=== PATIENT | male | born 1960 | race Asian ===

== ENCOUNTER → 2017-01-28 | Outpatient (CLI) | payer OTHER ==
[2017-01-28 12:49] LABS: HEMOGLOBIN 14.8 g/dL (13.7-18.0)
[2017-01-28 13:02] LABS: BLOOD UREA NITROGEN 22 mg/dL (7-18)
[2017-01-28 13:15] LABS: ASPARTATE AMINO TRANSFERASE 15 U/L (15-37); PROSTATE SPECIFIC ANTIGEN 1.18 ng/mL (0.00-4.00)
== END | disposition home or self-care (01) ==
LOC: LAB 11:35
PROVIDERS: ATTEND Family Medicine
DX: Z13.220 Encounter for screening for lipoid disorders (principal); Z13.228 Encounter for screening for other metabolic disorders; E11.9 Type 2 diabetes mellitus without complications; M10.9 Gout, unspecified
CPT/HCPCS: 36415; 80053; 80061; 81003; 83036; 84153; 84443; 84550; 85025

== ENCOUNTER → 2017-04-22 | Outpatient (CLI) | payer OTHER | END | disposition home or self-care (01) | LOC: CFH 08:03 | PROVIDERS: ATTEND Internal Medicine | DX: B18.1 Chronic viral hepatitis B without delta-agent (principal); K76.0 Fatty (change of) liver, not elsewhere classified; K82.4 Cholesterolosis of gallbladder | CPT/HCPCS: 76700 ==

== ENCOUNTER → 2017-05-06 | Outpatient (CLI) | payer OTHER | END | disposition home or self-care (01) | LOC: LAB 11:20 | PROVIDERS: ATTEND Internal Medicine | DX: B18.1 Chronic viral hepatitis B without delta-agent (principal) | CPT/HCPCS: 36415; 82105; 87517 ==

== ENCOUNTER → 2017-12-02 | Outpatient (CLI) | payer OTHER | END | disposition home or self-care (01) | LOC: CFH 06:54 | PROVIDERS: ATTEND Internal Medicine | DX: B18.1 Chronic viral hepatitis B without delta-agent (principal) | CPT/HCPCS: 76700 ==

== ENCOUNTER 2018-02-01 18:46 | Emergency (ER) | payer OTHER ==
[~2018-02-01] VITALS: Ht 172.7 cm; Wt 90.0 kg
[2018-02-01] MEDS ORDERED: INDO50CA PO (19:16)
[2018-02-01] MEDS ORDERED: ALLO100T30 PO (19:17)
[2018-02-01] MEDS ORDERED: LOSA50TA6 PO (19:18)
[2018-02-01] MEDS ORDERED: HYDR12.53 PO (19:18)
[2018-02-01] MEDS ORDERED: COLC0.6T37 PO (19:19)
[2018-02-01] MEDS ORDERED: KETOROLAC 30 MG/1 ML IM ONE (19:30)
[2018-02-01 19:47] LABS: BASOPHILS # (AUTO) 0.03 x10^3/uL (0-0.1); BASOPHILS % (AUTO) 0 % (0-1); EOSINOPHILS # (AUTO) 0.03 x10^3/uL (0-0.4); EOSINOPHILS % (AUTO) 1 % (1-7); LYMPHOCYTES # (AUTO) 1.86 x10^3/uL (1-3.4); LYMPHOCYTES % (AUTO) 24 % (22-44); MD NO; MEAN CORPUSCULAR HEMOGLOBIN 31.9 pg (27.5-34.5); MEAN CORPUSCULAR HGB CONC 34.4 g/dL (33.2-36.2); MEAN CORPUSCULAR VOLUME 92.7 fL (81-97); MEAN PLATELET VOLUME 8.7 fL (7.4-10.4); MONOCYTES # (AUTO) 0.79 x10^3/uL (0.2-0.8); MONOCYTES % (AUTO) 10 % (2-9); NEUTROPHILS % (AUTO) 64 % (42-75); PLATELET COUNT 171 x10^3/uL (130-400); RED BLOOD COUNT 4.69 x10^6/uL (4.38-5.82); RED CELL DISTRIBUTION WIDTH 12.7 % (9.4-14.8)
[2018-02-01 19:56] LABS: ALBUMIN 3.7 g/dL (3.4-5.0); ANION GAP 11 mmol/L (5-15); CALCIUM 8.5 mg/dL (8.5-10.1); CHLORIDE 102 mmol/L (98-107); CREATININE 1.22 mg/dL (0.7-1.3)
[2018-02-01] MEDS ORDERED: KETOROLAC 30 MG/1 ML ONE (20:03)
[2018-02-01 22:02] VITALS: BP 157/84
== END 2018-02-01 22:05 | disposition home or self-care (01) ==
LOC: ED 20:50
DX: M10.9 Gout, unspecified (principal); M13.862 Other specified arthritis, left knee; M13.832 Other specified arthritis, left wrist; I10 Essential (primary) hypertension
CPT/HCPCS: 36415; 80048; 82040; 84550; 85025; 99285

== ENCOUNTER → 2018-03-03 | Outpatient (CLI) | payer OTHER ==
[~2018-03-03] MED LIST: ALLO100T30 PO; COLC0.6T37 PO; HYDR12.53 PO; INDO50CA PO; LOSA50TA6 PO
[2018-03-03 12:39] LABS: BASOPHILS # (AUTO) 0.04 x10^3/uL (0-0.1); BASOPHILS % (AUTO) 1 % (0-1); EOSINOPHILS # (AUTO) 0.14 x10^3/uL (0-0.4); EOSINOPHILS % (AUTO) 3 % (1-7); LYMPHOCYTES # (AUTO) 2.18 x10^3/uL (1-3.4); LYMPHOCYTES % (AUTO) 52 % (22-44); MD NO; MEAN CORPUSCULAR HEMOGLOBIN 31.6 pg (27.5-34.5); MEAN CORPUSCULAR HGB CONC 34.1 g/dL (33.2-36.2); MEAN CORPUSCULAR VOLUME 92.6 fL (81-97); MEAN PLATELET VOLUME 9.6 fL (7.4-10.4); MONOCYTES # (AUTO) 0.36 x10^3/uL (0.2-0.8); MONOCYTES % (AUTO) 8 % (2-9); NEUTROPHILS # (AUTO) 1.52 x10^3/uL (1.8-6.8); NEUTROPHILS % (AUTO) 36 % (42-75); PLATELET COUNT 171 x10^3/uL (130-400); RED BLOOD COUNT 5.02 x10^6/uL (4.38-5.82); RED CELL DISTRIBUTION WIDTH 12.9 % (9.4-14.8)
[2018-03-03 12:50] LABS: ALBUMIN 3.9 g/dL (3.4-5.0); ANION GAP 9 mmol/L (5-15); CALCIUM 8.7 mg/dL (8.5-10.1); CHLORIDE 105 mmol/L (98-107)
[2018-03-03 12:53] LABS: ALANINE AMINOTRANSFERASE 45 U/L (12-78); ALKALINE PHOSPHATASE 53 U/L (45-117); BILIRUBIN,TOTAL 0.7 mg/dL (0.2-1.0); CREATININE 1.18 mg/dL (0.7-1.3); TOTAL PROTEIN 7.7 g/dL (6.4-8.2)
== END ==
LOC: CFH 10:25
PROVIDERS: ATTEND Internal Medicine
DX: B18.1 Chronic viral hepatitis B without delta-agent (principal)
CPT/HCPCS: 36415; 80053; 85025; 87340; 87517

== ENCOUNTER → 2018-05-12 | Outpatient (CLI) | payer OTHER | END | disposition home or self-care (01) | LOC: CFH 10:04 | PROVIDERS: ATTEND Internal Medicine | DX: B18.1 Chronic viral hepatitis B without delta-agent (principal) | CPT/HCPCS: 36415; 82105 ==

== ENCOUNTER 2018-08-13 08:00 | Day surgery (SDC) | payer OTHER ==
[2018-08-11 10:40] LABS: ALBUMIN 4.2 g/dL (3.4-5.0); ANION GAP 7 mmol/L (5-15); CALCIUM 9.4 mg/dL (8.5-10.1); CHLORIDE 105 mmol/L (98-107)
[2018-08-11 10:43] LABS: ALANINE AMINOTRANSFERASE 44 U/L (12-78); ALKALINE PHOSPHATASE 60 U/L (45-117); BILIRUBIN,TOTAL 0.6 mg/dL (0.2-1.0); CREATININE 1.37 mg/dL (0.7-1.3); TOTAL PROTEIN 8.4 g/dL (6.4-8.2)
[~2018-08-13] VITALS: Ht 172.7 cm; Wt 94.1 kg
[~2018-08-13 08:00] MED LIST changes: +FENO134C PO; -INDO50CA PO; +INDO50CA5 PO; -LOSA50TA6 PO; +LOSA50TA7 PO; +OMEP-110 PO
[2018-08-13] MEDS ORDERED: LACTATED RINGERS 1,000 ML IV SCH (08:20)
[2018-08-13 08:42] VITALS: BP 158/89
[2018-08-13] MEDS ORDERED: FENTANYL PF 100 MCG/2ML ONE (09:09)
[2018-08-13] MEDS ORDERED: MIDAZOLAM 1 MG/ML, 2ML ONE (09:09)
[2018-08-13] MEDS ORDERED: SUCCINYLCHOLINE 20 MG/ML, 10ML ONE (09:57)
[2018-08-13] MEDS ORDERED: NEOSTIGMINE 1 MG/ML, 10ML ONE (09:57)
[2018-08-13] MEDS ORDERED: ONDANSETRON 2MG/ML, 2ML ONE (09:57)
[2018-08-13] MEDS ORDERED: DEXAMETHASONE 4 MG/ML, 1ML ONE (09:57)
[2018-08-13] MEDS ORDERED: GLYCOPYRROLATE 0.2MG/1ML, 5ML ONE (09:57)
[2018-08-13] MEDS ORDERED: ROCURONIUM 10 MG/ML,10ML ONE (09:57)
[2018-08-13] MEDS ORDERED: PROPOFOL 10 MG/ML, 20ML ONE (09:57)
[2018-08-13] MEDS ORDERED: OXYcodone 5 MG/5 ML ORAL.SOL UDC PO PRN (10:30)
[2018-08-13] MEDS ORDERED: ACETAMINOPHEN 325 MG TABLET PO PRN (10:30)
[2018-08-13] MEDS ORDERED: ALBUTEROL SULFATE 2.5 MG/3 ML NPPB PRN (10:30)
[2018-08-13] MEDS ORDERED: PROMETHAZINE 25 MG/ML, 1ML IV PRN (10:30)
[2018-08-13] MEDS ORDERED: FENTANYL PF 100 MCG/2ML IV PRN (10:30)
== END 2018-08-13 12:05 | disposition home or self-care (01) ==
LOC: OUT 08:00
PROVIDERS: ATTEND Internal Medicine
DX: K22.719 Barrett's esophagus with dysplasia, unspecified (principal); K21.9 Gastro-esophageal reflux disease without esophagitis; E66.9 Obesity, unspecified; I10 Essential (primary) hypertension; E11.9 Type 2 diabetes mellitus without complications; M10.9 Gout, unspecified; B19.10 Unspecified viral hepatitis B without hepatic coma
CPT/HCPCS: 36415; 43270; 80053; 82962; J0330; J1100; J2250; J2405; J2704; J2710; J3010; J3490; J7120

== ENCOUNTER → 2018-09-15 | Outpatient (CLI) | payer OTHER ==
[2018-09-15 15:37] LABS: MEAN CORPUSCULAR HEMOGLOBIN 32.5 pg (27.5-34.5); MEAN CORPUSCULAR HGB CONC 34.4 g/dL (33.2-36.2); MEAN CORPUSCULAR VOLUME 94.4 fL (81-97); MEAN PLATELET VOLUME 9.4 fL (7.4-10.4); PLATELET COUNT 172 x10^3/uL (130-400); RED BLOOD COUNT 5.01 x10^6/uL (4.38-5.82); RED CELL DISTRIBUTION WIDTH 12.9 % (9.4-14.8)
[2018-09-15 15:50] LABS: ALBUMIN 4.2 g/dL (3.4-5.0); ANION GAP 10 mmol/L (5-15); CALCIUM 9.4 mg/dL (8.5-10.1); CHLORIDE 102 mmol/L (98-107)
[2018-09-15 15:54] LABS: ALANINE AMINOTRANSFERASE 35 U/L (12-78); ALKALINE PHOSPHATASE 55 U/L (45-117); BILIRUBIN,TOTAL 0.7 mg/dL (0.2-1.0); CREATININE 1.31 mg/dL (0.7-1.3); TOTAL PROTEIN 8.2 g/dL (6.4-8.2)
[2018-09-15 16:12] LABS: MD YES
[2018-09-15 16:29] LABS: <RBC MORPHOLOGY> NORMAL; EOS#(MANUAL) 0.04 x10^3/uL (0.0-0.4); EOS% (MANUAL) 1 % (1-7); LYMPH#(MANUAL) 1.89 x10^3/uL (1-3.4); LYMPHS% (MANUAL) 54 % (22-44); MONOS#(MANUAL) 0.35 x10^3/uL (0.3-2.7); MONOS% (MANUAL) 10 % (2-9); REACTIVE LYMPHS # (MANUAL) 0.04 x10^3/uL (0-0); REACTIVE LYMPHS % (MANUAL) 1 % (0-0); SEG#(MANUAL) 1.19 x10^3/uL (1.8-6.8); SEGS% (MANUAL) 34 % (42-75)
[2018-09-15 16:30] LABS: <PLATELET ESTIMATE> ADEQUATE; <PLT MORPHOLOGY> NORMAL PLT MORPH
== END | disposition home or self-care (01) ==
LOC: CFH 11:32
PROVIDERS: ATTEND Internal Medicine
DX: B18.1 Chronic viral hepatitis B without delta-agent (principal)
CPT/HCPCS: 36415; 80053; 85025; 87517

== ENCOUNTER 2018-12-22 07:35 | Outpatient (CLI) | payer OTHER ==
[~2018-12-22 07:35] MED LIST changes: +HYDR12.517 PO; -HYDR12.53 PO; +LOSA50TA14 PO; -LOSA50TA7 PO
== END 2018-12-22 23:59 | disposition home or self-care (01) ==
LOC: CFH 07:35
PROVIDERS: ATTEND Internal Medicine
DX: B18.1 Chronic viral hepatitis B without delta-agent (principal)
CPT/HCPCS: 76700

== ENCOUNTER 2019-01-03 08:14 | Observation (INO) | payer OTHER ==
[~2019-01-03] VITALS: Ht 172.7 cm; Wt 72.8 kg
--- NOTE | 2019-01-03 08:40 | NUR ---
CP STARTED AT 6:30 AM TODAY PER TRIAGE NOTE [employer] AT BED SIDE PT STATED " NO CHEST PAIN NOW BUT HAVING SHOULDER PAIN AT BOTH SIDES AND BACK OF HEAD PAIN "
[2019-01-03] MEDS ORDERED: ASPIRIN 81 MG TABLET CHEW ONE (09:14)
--- NOTE | 2019-01-03 09:26 | NUR ---
given asa pt came back from imaging
[2019-01-03] MEDS ORDERED: ASPIRIN 81 MG TABLET CHEW PO ONE (09:30)
[2019-01-03 09:44] LABS: MEAN CORPUSCULAR HEMOGLOBIN 32.2 pg (27.5-34.5); MEAN CORPUSCULAR HGB CONC 34.4 g/dL (33.2-36.2); MEAN CORPUSCULAR VOLUME 93.6 fL (81-97); MEAN PLATELET VOLUME 8.8 fL (7.4-10.4); PLATELET COUNT 190 x10^3/uL (130-400); RED BLOOD COUNT 4.92 x10^6/uL (4.38-5.82); RED CELL DISTRIBUTION WIDTH 13.6 % (9.4-14.8)
[2019-01-03 09:53] LABS: ALBUMIN 4.2 g/dL (3.4-5.0); ANION GAP 6 mmol/L (5-15); CALCIUM 8.8 mg/dL (8.5-10.1); CHLORIDE 107 mmol/L (98-107); CREATININE 1.04 mg/dL (0.7-1.3)
[2019-01-03 09:58] LABS: TROPONIN I 0.019 ng/mL (0.000-0.045)
[2019-01-03 10:44] LABS: MD YES
[2019-01-03 10:47] LABS: BAND#(MANUAL) 0.08 x10^3/uL; BANDS%(MANUAL) 3 % (0-7); BASOS#(MANUAL) 0.03 x10^3/uL (0-0.1); BASOS% (MANUAL) 1 % (0-1); EOS#(MANUAL) 0.11 x10^3/uL (0.0-0.4); EOS% (MANUAL) 4 % (1-7); MONOS#(MANUAL) 0.14 x10^3/uL (0.3-2.7); MONOS% (MANUAL) 5 % (2-9); SEG#(MANUAL) 0.78 x10^3/uL (1.8-6.8); SEGS% (MANUAL) 29 % (42-75)
[2019-01-03 10:48] LABS: <RBC MORPHOLOGY> NORMAL; LYMPH#(MANUAL) 1.43 x10^3/uL (1-3.4); LYMPHS% (MANUAL) 53 % (22-44); REACTIVE LYMPHS # (MANUAL) 0.14 x10^3/uL (0-0); REACTIVE LYMPHS % (MANUAL) 5 % (0-0)
[2019-01-03 10:49] LABS: <PLATELET ESTIMATE> ADEQUATE; <PLT MORPHOLOGY> NORMAL PLT MORPH
[2019-01-03 14:45] VITALS: BP 155/90
[2019-01-03 14:51] VITALS: BP 155/90
[2019-01-03] MEDS ORDERED: ACETAMINOPHEN 325 MG TABLET PO PRN (16:00)
[2019-01-03] MEDS ORDERED: ZOLPIDEM 5MG TABLET PO PRN (16:00)
[2019-01-03] MEDS ORDERED: NITROGLYCERIN 0.4 MG/SPRAY SL PRN (16:00)
[2019-01-03] MEDS ORDERED: NITROGLYCERIN 0.4 MG BOTTLE (25 TABS) SL PRN (16:00)
[2019-01-03] MEDS ORDERED: POLYETHYLENE GLYCOL 17 GM PACKET PO PRN (16:00)
[2019-01-03] MEDS ORDERED: hydrALAzine 20 MG/ML, 1ML IVPush PRN (16:00)
[2019-01-03] MEDS ORDERED: BISACODYL 10 MG SUPP PR PRN (16:00)
[2019-01-03] MEDS ORDERED: ONDANSETRON ODT 4 MG PO PRN (16:00)
[2019-01-03] MEDS: ENOXAPARIN 40 MG/0.4 ML SQ SCH (16:00)
[2019-01-03] MEDS ORDERED: DOCUSATE 100 MG CAPSULE PO PRN (16:00)
[2019-01-03 16:47] LABS: FREE T4 (FREE THYROXINE) 1.09 ng/dL (0.76-1.46)
[2019-01-03 17:01] LABS: HEMOGLOBIN A1C 7.7 % (4.2-6.3)
[2019-01-03] MEDS: ALLOPURINOL 100 MG TABLET PO SCH ×2 (17:58→19:16)
[2019-01-03 19:45] VITALS: BP 119/73
[2019-01-04 05:23] LABS: BASOPHILS # (AUTO) 0.03 x10^3/uL (0-0.1); BASOPHILS % (AUTO) 1 % (0-1); EOSINOPHILS # (AUTO) 0.12 x10^3/uL (0-0.4); EOSINOPHILS % (AUTO) 3 % (1-7); LYMPHOCYTES # (AUTO) 1.61 x10^3/uL (1-3.4); LYMPHOCYTES % (AUTO) 44 % (22-44); MD NO; MEAN CORPUSCULAR HEMOGLOBIN 32.2 pg (27.5-34.5); MEAN CORPUSCULAR HGB CONC 33.4 g/dL (33.2-36.2); MEAN CORPUSCULAR VOLUME 96.4 fL (81-97); MEAN PLATELET VOLUME 8.8 fL (7.4-10.4); MONOCYTES % (AUTO) 8 % (2-9); NEUTROPHILS # (AUTO) 1.63 x10^3/uL (1.8-6.8); NEUTROPHILS % (AUTO) 44 % (42-75); PLATELET COUNT 168 x10^3/uL (130-400); RED BLOOD COUNT 4.91 x10^6/uL (4.38-5.82); RED CELL DISTRIBUTION WIDTH 13.2 % (9.4-14.8)
[2019-01-04 05:37] LABS: ANION GAP 7 mmol/L (5-15); CALCIUM 8.8 mg/dL (8.5-10.1); CHLORIDE 107 mmol/L (98-107); CHOLESTEROL, TOTAL 211 mg/dL (140-239); CREATININE 1.42 mg/dL (0.7-1.3); TRIGLYCERIDES 163 mg/dL (50-200); VLDL CHOLESTEROL 33 mg/dL (0-25)
[2019-01-04 05:40] LABS: CHOL/HDL RATIO 5.1; HDL CHOL % 19 % (26-37); HDL CHOLESTEROL (DIRECT) 41 mg/dL (40-60); LDL CHOLESTEROL,CALCULATED 137 mg/dL (54-169); LDL/HDL RATIO 3.3 (0.5-3.0)
[2019-01-04 05:47] VITALS: BP 126/73
[2019-01-04 07:23] VITALS: BP 125/79
[2019-01-04] MEDS ORDERED: REGADENOSON 0.4 MG/5 ML SYRINGE ONE (08:58)
[2019-01-04] MEDS: ALLOPURINOL 100 MG TABLET PO SCH ×3 (09:17→21:39)
[2019-01-04] MEDS: OMEPRAZOLE 20 MG CAPSULE.DR PO SCH (09:18)
[2019-01-04] MEDS: COLCHICINE 0.6 MG TABLET PO SCH (09:18)
[2019-01-04] MEDS: LOSARTAN 50MG TABLET PO SCH (12:43)
[2019-01-04] MEDS: HYDROCHLOROTHIAZIDE 12.5 MG CAPSULE PO SCH (12:43)
[2019-01-04 15:24] VITALS: BP 122/73
[2019-01-04] MEDS: ENOXAPARIN 40 MG/0.4 ML SQ SCH (15:56)
[2019-01-04] MEDS: LACTATED RINGERS 1,000 ML IV SCH (15:56)
[2019-01-04 19:15] VITALS: BP 123/79
[2019-01-04] MEDS: FENOFIBRATE 145 MG TABLET PO SCH (21:39)
[2019-01-04 22:45] VITALS: BP 114/70
[2019-01-05 00:15] VITALS: BP 122/69
[2019-01-05] MEDS: LACTATED RINGERS 1,000 ML IV SCH (03:00)
[2019-01-05 05:10] LABS: BASOPHILS # (AUTO) 0.03 x10^3/uL (0-0.1); BASOPHILS % (AUTO) 1 % (0-1); EOSINOPHILS # (AUTO) 0.13 x10^3/uL (0-0.4); EOSINOPHILS % (AUTO) 3 % (1-7); LYMPHOCYTES # (AUTO) 2.23 x10^3/uL (1-3.4); LYMPHOCYTES % (AUTO) 46 % (22-44); MD NO; MEAN CORPUSCULAR HGB CONC 33.9 g/dL (33.2-36.2); MEAN CORPUSCULAR VOLUME 94.1 fL (81-97); MEAN PLATELET VOLUME 8.8 fL (7.4-10.4); MONOCYTES # (AUTO) 0.35 x10^3/uL (0.2-0.8); MONOCYTES % (AUTO) 7 % (2-9); NEUTROPHILS % (AUTO) 43 % (42-75); PLATELET COUNT 182 x10^3/uL (130-400); RED BLOOD COUNT 4.63 x10^6/uL (4.38-5.82); RED CELL DISTRIBUTION WIDTH 13.2 % (9.4-14.8)
[2019-01-05 05:15] LABS: CHLORIDE 105 mmol/L (98-107)
[2019-01-05 05:21] LABS: ANION GAP 6 mmol/L (5-15); CALCIUM 8.9 mg/dL (8.5-10.1); CREATININE 1.43 mg/dL (0.7-1.3)
[2019-01-05 07:48] VITALS: BP 128/69
[2019-01-05] MEDS: COLCHICINE 0.6 MG TABLET PO SCH (08:34)
[2019-01-05] MEDS: LOSARTAN 50MG TABLET PO SCH (08:34)
[2019-01-05] MEDS: FENOFIBRATE 145 MG TABLET PO SCH (08:34)
[2019-01-05] MEDS: OMEPRAZOLE 20 MG CAPSULE.DR PO SCH (08:35)
[2019-01-05] MEDS: ALLOPURINOL 100 MG TABLET PO SCH (08:35)
[2019-01-05] MEDS: HYDROCHLOROTHIAZIDE 12.5 MG CAPSULE PO SCH (08:35)
[2019-01-05] MEDS ORDERED: GLYB2.5T2 PO (11:53)
== END 2019-01-05 12:51 | disposition home or self-care (01) ==
LOC: ED 10:21 → EDIP 10:22 → INTOOBSV 10:22 → ED 10:37 → 5SO 14:37
PROVIDERS: ADMIT Hospitalist; ATTEND Hospitalist
DX: R07.89 Other chest pain (principal); E11.22 Type 2 diabetes mellitus with diabetic chronic kidney disease; E11.65 Type 2 diabetes mellitus with hyperglycemia; E78.5 Hyperlipidemia, unspecified; I12.9 Hypertensive chronic kidney disease with stage 1 through stage 4 chronic kidney disease, or unspecified chronic kidney disease; K21.9 Gastro-esophageal reflux disease without esophagitis; M10.9 Gout, unspecified; N17.9 Acute kidney failure, unspecified; N18.9 Chronic kidney disease, unspecified; Z80.0 Family history of malignant neoplasm of digestive organs; Z82.49 Family history of ischemic heart disease and other diseases of the circulatory system; Z83.3 Family history of diabetes mellitus
CPT/HCPCS: 36415; 71046; 78452; 80048; 80061; 82040; 82962; 83036; 83880; 84439; 84443; 84484; 85025; 93005; 93017; 93306; 96360; 96361; 99284; A9502; C9898; G0378; J2785; J7120; 99285

== ENCOUNTER → 2019-02-11 | Outpatient (CLI) | payer OTHER ==
[~2019-02-11] MED LIST changes: +DAPA1TAB3 PO; +GLYB2.5T2 PO
== END | disposition home or self-care (01) ==
LOC: STAR 08:49
PROVIDERS: ATTEND Internal Medicine
DX: Z01.818 Encounter for other preprocedural examination (principal); K22.70 Barrett's esophagus without dysplasia; I44.0 Atrioventricular block, first degree; R00.1 Bradycardia, unspecified
CPT/HCPCS: 93005

== ENCOUNTER 2019-02-18 06:42 | Day surgery (SDC) | payer OTHER ==
[~2019-02-18] VITALS: Ht 172.7 cm; Wt 90.7 kg
[2019-02-18] MEDS ORDERED: LACTATED RINGERS 1,000 ML IV SCH (07:06)
[2019-02-18 07:07] VITALS: BP 145/90
[2019-02-18] MEDS ORDERED: PROPOFOL 50 ML ONE (08:32)
[2019-02-18] MEDS ORDERED: DIPHENHYDRAMINE 50 MG/ML, 1ML IVPush PRN (09:00)
[2019-02-18] MEDS ORDERED: ONDANSETRON ODT 8 MG PO PRN (09:00)
[2019-02-18] MEDS ORDERED: EPHEDRINE 50 MG/ML, 1ML IM PRN (09:00)
[2019-02-18] MEDS ORDERED: FENTANYL PF 100 MCG/2ML IV PRN (09:00)
[2019-02-18] MEDS ORDERED: MIDAZOLAM 1 MG/ML, 2ML IV PRN (09:00)
[2019-02-18] MEDS ORDERED: OXYcodone 5 MG/5 ML ORAL.SOL UDC PO PRN (09:00)
[2019-02-18] MEDS ORDERED: ONDANSETRON 2MG/ML, 2ML IV PRN (09:00)
[2019-02-18] MEDS ORDERED: DIAZEPAM 5 MG/ML, 2ML IVPush PRN (09:00)
== END 2019-02-18 10:45 | disposition home or self-care (01) ==
LOC: OUT 06:42
PROVIDERS: ATTEND Internal Medicine
DX: K21.0 Gastro-esophageal reflux disease with esophagitis (principal); K22.70 Barrett's esophagus without dysplasia; K44.9 Diaphragmatic hernia without obstruction or gangrene; E11.9 Type 2 diabetes mellitus without complications; Z79.84 Long term (current) use of oral hypoglycemic drugs
CPT/HCPCS: 43239; 82962; 88305; J2704; J7120

== ENCOUNTER 2019-05-27 09:24 | Outpatient (CLI) | payer OTHER ==
[~2019-05-27 09:24] MED LIST changes: +INDO50CA15 PO; -INDO50CA5 PO
[2019-05-27 12:47] LABS: MICROSCOPIC NOT IND
[2019-05-27 13:02] LABS: BASOPHILS # (AUTO) 0.02 x10^3/uL (0-0.1); BASOPHILS % (AUTO) 1 % (0-1); EOSINOPHILS # (AUTO) 0.15 x10^3/uL (0-0.4); EOSINOPHILS % (AUTO) 5 % (1-7); LYMPHOCYTES # (AUTO) 1.36 x10^3/uL (1-3.4); LYMPHOCYTES % (AUTO) 43 % (22-44); MD NO; MEAN CORPUSCULAR HEMOGLOBIN 32.5 pg (27.5-34.5); MEAN CORPUSCULAR HGB CONC 33.8 g/dL (33.2-36.2); MEAN CORPUSCULAR VOLUME 96.3 fL (81-97); MEAN PLATELET VOLUME 8.9 fL (7.4-10.4); MONOCYTES % (AUTO) 7 % (2-9); NEUTROPHILS # (AUTO) 1.43 x10^3/uL (1.8-6.8); NEUTROPHILS % (AUTO) 45 % (42-75); PLATELET COUNT 189 x10^3/uL (130-400); RED CELL DISTRIBUTION WIDTH 13.3 % (9.4-14.8)
[2019-05-27 13:44] LABS: CHLORIDE 103 mmol/L (98-107)
[2019-05-27 14:01] LABS: HEMOGLOBIN A1C 7.6 % (4.2-6.3)
[2019-05-27 14:11] LABS: ALANINE AMINOTRANSFERASE 40 U/L (12-78); ALBUMIN 4.3 g/dL (3.4-5.0); ALKALINE PHOSPHATASE 46 U/L (45-117); ANION GAP 7 mmol/L (5-15); CALCIUM 9.5 mg/dL (8.5-10.1); CHOL/HDL RATIO 4.8; CHOLESTEROL, TOTAL 211 mg/dL (140-239); CREATININE 1.45 mg/dL (0.7-1.3); HDL CHOLESTEROL (DIRECT) 44 mg/dL (40-60); TOTAL PROTEIN 8.2 g/dL (6.4-8.2); TRIGLYCERIDES 99 mg/dL (50-200); VLDL CHOLESTEROL 20 mg/dL (0-25)
[2019-05-27 14:12] LABS: HDL CHOL % 21 % (26-37); LDL CHOLESTEROL,CALCULATED 147 mg/dL (54-169); LDL/HDL RATIO 3.3 (0.5-3.0); PSA SCREEN 0.81 ng/mL (0.00-4.00); T4 (THYROXINE) 9.3 mcg/dL (4.5-12.1)
== END 2019-05-27 23:59 | disposition home or self-care (01) ==
LOC: CFH 09:24
PROVIDERS: ATTEND Internal Medicine
DX: Z13.228 Encounter for screening for other metabolic disorders (principal); Z13.220 Encounter for screening for lipoid disorders; Z13.9 Encounter for screening, unspecified; Z12.5 Encounter for screening for malignant neoplasm of prostate; E11.9 Type 2 diabetes mellitus without complications; B18.1 Chronic viral hepatitis B without delta-agent
CPT/HCPCS: 36415; 80053; 80061; 81003; 82105; 83036; 84436; 84443; 84550; 85025; G0103